=== PATIENT | female | born 1950 | race Caucasian/White ===

== ENCOUNTER 2020-07-25 10:00 | Emergency (ER) | payer BC ==
[~2020-07-25] VITALS: Ht 165.1 cm; Wt 59.0 kg
--- NOTE | 2020-07-25 10:37 | NUR ---
PT SEEN AND EVALUATED BY .
--- NOTE | 2020-07-25 10:46 | NUR ---
Patient discharged to home in stable condition. Written and verbal after care instructions given. Patient verbalizes understanding of instructions. Stressed follow up or return to ER for worsening s/s.
== END 2020-07-25 10:47 | disposition home or self-care (01) ==
LOC: ER 10:00
DX: S61.211A Laceration without foreign body of left index finger without damage to nail, initial encounter (principal); W26.0XXA Contact with knife, initial encounter; Y92.89 Other specified places as the place of occurrence of the external cause; E03.9 Hypothyroidism, unspecified
CPT/HCPCS: 12001; 99282; J3490; A4663

== ENCOUNTER 2020-08-03 12:28 | Emergency (ER) | payer BC ==
[~2020-08-03] VITALS: Ht 165.1 cm; Wt 59.0 kg
--- NOTE | 2020-08-03 13:27 | NUR ---
Dr Flynn removed sutures from Lt index finger.
[2020-08-03 13:30] VITALS: BP 125/67
== END 2020-08-03 13:30 | disposition home or self-care (01) ==
LOC: ER 12:30
DX: S61.211D Laceration without foreign body of left index finger without damage to nail, subsequent encounter (principal); W26.0XXD Contact with knife, subsequent encounter; E03.9 Hypothyroidism, unspecified
CPT/HCPCS: A4663